=== PATIENT | male | born 1975 | race Two or more races ===

== ENCOUNTER 2021-01-22 12:44 | Emergency (ER) | payer OTHER ==
[~2021-01-22] VITALS: Ht 160 cm; Wt 62.1 kg
--- NOTE | 2021-01-22 13:03 | NUR ---
PT C/O RT LEG PAIN & STS " I'M DETOXING ON METH ". AAOX4, VSS. RR EVEN & UNLABORED. DENIES CP, SOB, DIZZINESS, N/V AT THIS TIME. PT SEEN & EVAL'D BY DR. CHAMBERLAIN. WILL CONT TO MONITOR.
[2021-01-22] MEDS ORDERED: IBUPROFEN 600 MG TABLET PO ONE (13:30)
[2021-01-22] MEDS ORDERED: IBUPROFEN 600 MG TABLET ONE (13:37)
--- NOTE | 2021-01-22 13:45 | NUR ---
Patient discharged to home in stable condition. Written and verbal after care instructions given. Patient verbalizes understanding of instruction.
[2021-01-22 13:47] VITALS: BP 123/89
== END 2021-01-22 13:48 | disposition home or self-care (01) ==
LOC: ER 12:44
DX: M25.561 Pain in right knee (principal); F15.10 Other stimulant abuse, uncomplicated; J45.909 Unspecified asthma, uncomplicated; Z59.0 Homelessness
CPT/HCPCS: 73564-TC

== ENCOUNTER 2021-01-23 12:40 | Emergency (ER) | payer OTHER ==
[~2021-01-23] VITALS: Ht 162.6 cm; Wt 61.2 kg
[2021-01-23 12:46] VITALS: BP 129/64
--- NOTE | 2021-01-23 13:46 | NUR ---
Patient discharged to home in stable condition. Written and verbal after care instructions given. Patient verbalizes understanding of instruction.
== END 2021-01-23 13:45 | disposition home or self-care (01) ==
LOC: ER 12:46
DX: T18.2XXA Foreign body in stomach, initial encounter (principal); J45.909 Unspecified asthma, uncomplicated; W45.8XXA Other foreign body or object entering through skin, initial encounter; Y93.89 Activity, other specified; Y92.89 Other specified places as the place of occurrence of the external cause; Y99.8 Other external cause status
CPT/HCPCS: 71045-TC; 74018